=== PATIENT | male | born 1980 | race Caucasian/White ===

== ENCOUNTER 2023-09-28 14:44 | Outpatient (CLI) | payer OTHER, SELFPAY ==
--- NOTE | ~2023-09-28 | CT_ITS ---
EXAMINATION: CT abdomen pelvis w con DATE: 09/28/2023 15:06 INDICATION: Abdominal pain. TECHNIQUE: Computed tomography (CT) of the abdomen and pelvis was performed with 100 mL Omnipaque 350 intravenous contrast. Automated exposure control and iterative reconstruction technique were employe d. The dose-length product was 1098.68 mGy-cm. COMPARISON: None. FINDINGS: The visualized portions of the lung bases demonstrate mild atelectasis. No pleural effusion . The heart size is normal. No pericardial effusion. Calcified right hilar and mediastinal lymph node s are consistent with old granulomatous disease. The liver is normal. There is a gallstone in the gal lbladder, which is normal in size. There is a 9 mm hypodense mass in the spleen, likely benign. The p ancreas, adrenal glands, and kidneys are normal. There is diverticulosis of the colon without evidenc e of diverticulitis. There are no dilated loops of bowel. The appendix is normal. There are no pathol ogically enlarged lymph nodes. There is no free intraperitoneal fluid. There is mild thoracic and lum bar spondylosis. IMPRESSION: 1. Cholelithiasis. No evidence of acute cholecystitis. Reviewed, dictated and finalized at location E.
== END 2023-09-28 14:45 ==
PROVIDERS: PCP Family Medicine; Visit Provider Family Medicine
DX: K80.20 Calculus of gallbladder without cholecystitis without obstruction (principal)
CPT/HCPCS: 74177; Q9967

== ENCOUNTER 2024-03-19 08:32 | Outpatient (CLI) | payer SELFPAY ==
[2024-03-19 10:12] VITALS: BMI 31.2
== END 2024-03-19 08:33 | disposition home or self-care (01) ==
PROVIDERS: PCP Family Medicine; Visit Provider Family Medicine
DX: E78.00 Pure hypercholesterolemia, unspecified (principal); Z71.3 Dietary counseling and surveillance
CPT/HCPCS: 99199

== ENCOUNTER 2024-05-19 13:58 | Emergency (ER) | payer OTHER, SELFPAY ==
--- NOTE | ~2024-05-19 | XR_ITS ---
EXAMINATION: XR finger 1st LT min 2V DATE: 05/19/2024 14:26 INDICATION: Left thumb injury. TECHNIQUE: 3 views of left thumb were obtained. COMPARISON: None. FINDINGS: Alignment is normal. No fracture. There is mild osteoarthritis of first carpometacarpal thony nt and first interphalangeal joint. There is a periarticular calcification at radial aspect of the fi rst interphalangeal joint. IMPRESSION: 1. Mild polyarticular osteoarthritis. Reviewed, dictated and finalized at location A. ICS TEACHER
[2024-05-19 14:08] VITALS: BP 163/96; PULSE 82; RESP 18; TEMP 36.7; O2SAT 100
--- OUTSIDE RECORDS SUMMARY | 2024-05-19 14:11 | XMS_ITS | Encounter Summary ---
Author Organization [facility] Address [address] [place] [address] Care Team Providers Care Gift Officer Name Role Phone Andrea Goetz MD Primary Care Provider [phone] Encounter Details Date Type Department Care Team (Late st Contact Info) Description 03/01/2021 [employer] Message Enc [facility] [address] [phone] Aileen Thayer, [facility] [address] [place] [address] [place] [phone] Visit Follow Up Social History Tobacco Use Types Packs/Day Years Used Date Smoking Tobacco: Never Smokeless Tobacco: Never Alcohol Use Standard Drinks/Week Comments Not Currently 0 (1 standard drink = 0.6 oz pur e alcohol) Sex and Gender Information Value Date Recorded Sex Assigned at Not on file Legal Sex Male 9:24 PM CDT Gender Identity Not on file Sexual Orientation Not on file COVID-19 Exposure Response Date Recorded In the last month, have you been in contact with someone who was confirmed or suspected to have Coronavirus / COVID-19? 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
--- OUTSIDE RECORDS SUMMARY | 2024-05-19 14:11 | XMS_ITS | Clinical Summary ---
Author Organization [facility] Address [address] [place] [address] Care Team Providers Care Career Development Coordinator/Teacher Name Role Phone Andrea Goetz MD Primary Care Provider Allergies No known active allergies Medications sertraline 100 MG tablet Take 1 tablet (100 mg total) by mouth daily. 06/23/2020 Active testosterone cypionate 200 MG/ML injection INJECT 1 ML INTO THE MUSCLE ONCE WEEKLY 05/29/2020 Active omeprazole EC (PRILOSEC OTC) 20 MG tablet Take 1 tablet (20 mg total) by mouth daily. Active multi vitamin/mineral s (THERA-M ENHANCED) tablet Take 1 tablet by mouth daily. Active dexamethasone (DECADRON) 4 MG tablet 05/17/2022 Active HYDROcodone-fauzia taminophen (NORCO) 5-325 MG tabletIndicatio ns:Acute Pain < 7 Day Supply Take 1-2 tablets by mouth every 4 (four) hours as needed for Pain. Indications: Acute Pain < 7 Day Supply For Moderate Pain 20 tablet 05/18/2022 Active Active Problems Problem Noted Date Diagnosed Date Umbilical hernia without obstruction or gangrene 05/10/2022 Overview (05/10/2022): Added automatically from request for surgery [id number] Diverticulitis 01/27/2022 Closed nondisplaced fracture of base of second metacarpal bone of left hand with routine healing, subsequent encounter 07/29/2020 Lateral epicondylitis of right elbow 07/13/2020 Lateral epicondylitis of left elbow 07/13/2020 Family History Medical History Relation Comments No Known Problems Father No Known Problems Mother Relation Status Comments Father Alive Mother Alive Social History Tobacco Use Types Packs/Day Years Used Date Smoking Tobacco: Never Smokeless Tobacco: Never Tobacco Cessation:Counseling Given: Not Answered Alcohol Use Standard Drinks/Week Comments Yes 10 (1 standard drink = 0.6 oz pu re alcohol) social Sex and Gender Information Value Date Recorded Sex Assigned at Not on file Legal Sex Male 9:24 PM CDT Gender Identity Not on file Sexual Orientation Not on file Last Filed Vital Signs Vital Sign Reading Time Taken Comments Blood Pressure 144/99 01/03/2023 9:55 AM CDT Pulse 79 01/03/2023 9:55 AM CDT Temperature 35.8 C (96.4 F) 05/18/2022 9:50 AM REGISTERED RESPIRATORY THERAPIST Respiratory Rate 18 01/03/2023 9:55 AM CDT Oxygen Saturation 100% 01/03/2023 9:55 AM CDT Inhaled Oxygen Concentration - - Weight 106.3 kg (234 lb 6.4 oz) 01/03/2023 9:55 AM CDT Height 182.9 cm (6') 01/03/2023 9:55 AM CDT Body Mass Index 31.79 01/03/2023 9:55 AM CDT Plan of Treatment Health Maintenance Due Date Last Done Comments Annual Physical 1984 DTaP, Tdap and Td Vaccines (6 - Tdap) 1992 11/18/1986, 08/16/1983, 08/10/1982, Additional history exists PHQ-2 (Physician [place]) 1993 Hepatitis C 12/12/1999 Hepatitis B Vaccines (1 of 3 - 19+ 3-dose series) 2000 COVID-19 Vaccine (2023- season) 2023 Influenza Adult (#1) 2024 01/24/2020, 01/21/2019, 01/05/2018, Additional history exists PHQ-2 (Physician [place]) 04/09/2024 HPV Vaccines Aged Out No longer eligi ble based on patient's age to complete this topic Meningococcal B Vaccine Aged Out No l onger eligible based on patient's age to complete this topic Meningococcal Vaccine Aged Out No cameron alexus eligible based on patient's age to complete this topic Pneumococcal Vaccine: Pediatrics (0 to 5 Years) and At-Risk Patients (6 to 64 Years) Aged Out No longer eligible based on patient's age to complete this topic RSV Immunizations Under 20 Months Aged Out No longer eligible based on patient's age to complete this topic Goals Goal Patient Goal Type Associated Problems Recent Progress Patient-Stated? Author Patient will return to prior living situation and remain independent in ADLs upon discharge from hospital Lifestyle No Pili Vega RN Medical Devices Implanted Type Area Shrimper Device Identifier Shelf Expiration Date Model / Serial / Lot Mesh Symbotex 3.3 X 2.3mm 9cm - [id number] Implanted:Qty: 1 on 05/18/2022 by Gunner Shields MD at [facility] Mesh N/A: Umbilical [employer] [id number] 11/06/2025 [id number] / / [id number] Insurance [facility] Member Subscriber Plan / Payer (Ef fective 2020-Present) Name:Lion Herrno Relation to Subscriber:Self Name:Lion Herron Payer ID:[id number] (NAIC) Type:Not on file Address: [facility] [id number] [address] Advance Directives * Full Code (Latest Code Status on File) Date Activated Date Inactivated Comments 01/27/2022 6:06 AM 01/28/2022 6:37 PM Care Teams Career Development Coordinator/Teacher Relationship Specialty Start Date End Date Andrea Goetz MD [address] [place] [phone] PCP - General FAMILY PRACTICE 07/12/20
--- NOTE | 2024-05-19 14:39 | ED.EXTPRO ---
HPI - Extremity Problem General Chief complaint: Extremity Problem,Nontraumatic Stated complaint: thumb laceration Time Seen by Provider: 05/19/24 14:12 Source: patient History of Present Illness HPI Narrative: left thumb injury while grinding prior to arrival. Patient denies other injuries. unknown last tetanus. Related Data Allergies Allergy/AdvReac Type Severity Reaction Status Date / Time No Known Allergies Allergy Verified 05/19/24 14:20 Review of Systems Review of Systems: All systems reviewed & are unremarkable except as noted in HPI and below PMFSH Social History Social History Spiritual care concerns: No Exam Narrative: General appearance: Well-developed, well-nourished Skin: Normal color Left thumb exam showed 1 cm laceration at the distal interphalangeal joint, no active bleeding, good flexion and extension of the thumb at the joint, it itches of the laceration looks like it got burned by the precision grinder external Head: Normocephalic, nontraumatic Vascular: Normal peripheral pulses, normal capillary refill. Musculoskeletal: Normal range of motion, nontender back Neurologic: Alert and oriented ?3, BUILDING MANAGER is normal as tested, no gross motor deficit Course Vital Signs Vital signs: Vital Signs Temperature 36.7 C 05/19/24 14:08 Pulse Rate 82 05/19/24 14:08 Respiratory Rate 18 05/19/24 14:08 Blood Pressure 163/96 H 05/19/24 14:08 Pulse Oximetry 100 05/19/24 14:08 Oxygen Delivery Room Air 05/19/24 14:08 Temperature 36.7 C 05/19/24 14:08 Pulse Rate 82 05/19/24 14:08 Respiratory Rate 18 05/19/24 14:08 Blood Pressure 163/96 H 05/19/24 14:08 Pulse Oximetry 100 05/19/24 14:08 Oxygen Delivery Room Air 05/19/24 14:08 Procedures Laceration Laceration 1: Date: 05/19/24 Time: 14:54 Site: hand Side (If applicable): left Size (cm): 1 Description: linear Depth: simple, single layer Local Anesthetic: lidocaine 1% and with epi Amount of anesthesia used (mL): 3 Pre-repair: wound explored, irrigated extensively, deep structures intact and other ( the wound margins are cauterized by the precision grinder external) ====== Skin Level ====== Skin layer closed with: nylon Size (cm): 6-0 Number of sutures: 3 Technique: simple, interrupted ====== Subcutaneous Layer ====== ====== Muscle Layer ====== ====== Tendon Layer ====== Critical Care Time Critical Care Time Critical Care Time: No Discharge Plan Discharge Clinical Impression: Finger laceration Patient Disposition: Home, Self-Care Condition: Improved Instructions: Finger Laceration (ED) Additional Instructions: Return if symptoms are worsening , call your family physician for appointment, take Tylenol as as needed for aches and pain, continue home medications. Remove sutures in 8 days Patient Language: Mongolian Follow-up/Referrals: Bishnu,MD Andrea [Primary Care Provider] -
[2024-05-19] MEDS: TETANUS,DIPHTHERIA,AC PERTUSSIS ADULT 0.5 ML (ADACEL) IM (14:44)
[2024-05-19 14:59] VITALS: BP 163/96; PULSE 82; RESP 18; TEMP 36.7; O2SAT 100
--- OUTSIDE RECORDS SUMMARY | 2024-05-19 14:59 | XMS_ITS | Encounter Summary ---
Author Organization [facility] Address [address] [place] [address] Care Team Providers Care School Bus Driver/Custodian Name Role Phone Andrea Goetz MD Primary Care Provider Encounter Details Date Type Department Care Team (Late st Contact Info) Description 03/01/2021 [email or web address] Message Enc [facility] [address] [phone] Aileen Thayer, [facility] [address] [place] [address] [place] [phone] Visit Follow Up Social History Tobacco Use [...] COVID-19? No / Unsure 03/01/2021 11:35 AM FOOD MANAGEMENT AIDE documented as of this encounter Plan of Treatment Not on file documented as of this encounter Visit Diagnoses Not on filedocumented in this encounter Care Teams School Bus Driver/Custodian Relationship Specialty Start Date End Date Andrea Goetz MD [address] [place] [address] [phone] PCP - General FAMILY PRACTICE 07/12/20 documented as of this encounter
--- OUTSIDE RECORDS SUMMARY | 2024-05-19 14:59 | XMS_ITS | Clinical Summary ---
Author Organization [facility] Address [address] [place] [address] Care Team Providers Care Printed Circuit Boards Beveler Name Role Phone Andrea Goetz MD Primary [...] (05/10/2022): Added automatically from request for surgery [id number] Diverticulitis 01/27/2022 Closed nondisplaced fracture of base [...] 35.8 C (96.4 F) 05/18/2022 9:50 AM MANAGER MONITORING Respiratory Rate 18 01/03/2023 9:55 AM CDT [...] 08/16/1983, 08/10/1982, Additional history exists PHQ-2 (Physician [place]) 1993 Hepatitis C 12/12/1999 Hepatitis B Vaccines (1 of 3 - 19+ 3-dose series) 2000 COVID-19 Vaccine (2023- season) 2023 Influenza Adult (#1) 2024 01/24/2020, 01/21/2019, 01/05/2018, Additional history exists PHQ-2 (Physician [place]) 04/09/2024 HPV Vaccines Aged Out No longer [...] Vega RN Medical Devices Implanted Type Area Technical Customer Support Specialist Device Identifier Shelf Expiration Date Model / Serial / Lot Mesh Symbotex 3.3 X 2.3mm 9cm - [id number] Implanted:Qty: 1 on 05/18/2022 by Gunner Shields MD at [facility] Mesh N/A: Umbilical [employer] [id number] 11/06/2025 [id number] / / [id number] Insurance [facility] Member Subscriber Plan / Payer (Ef fective 2020-Present) Name:Lion Herron Relation to Subscriber:Self Name:Lion Herron Payer ID:[id number] (NAIC) Type:Not on file Address: [place] [place] [id number] [address] Advance Directives * Full Code (Latest Code Status on File) Date Activated Date Inactivated Comments 01/27/2022 6:06 AM 01/28/2022 6:37 PM Care Teams Printed Circuit Boards Beveler Relationship Specialty Start Date End Date Andrea Goetz MD [address] [place] [phone] PCP - General FAMILY PRACTICE 07/12/20
== END 2024-05-19 14:59 | disposition home or self-care (01) ==
LOC: CHSED 14:45
PROVIDERS: Emergency Provider Emergency Medicine; PCP Family Medicine
DX: S61.012A Laceration without foreign body of left thumb without damage to nail, initial encounter (principal); W31.89XA Contact with other specified machinery, initial encounter; Z23 Encounter for immunization
CPT/HCPCS: 12001; 73140; 90471; 90715; 99283